=== PATIENT | male | born 1980 | race Two or more races ===

== ENCOUNTER 2020-02-06 12:11 | Emergency (ER) | payer MEDICAID, OTHER ==
[~2020-02-06] VITALS: Ht 165.1 cm; Wt 68.0 kg
[2020-02-06 13:37] VITALS: BP 134/100
== END 2020-02-06 14:44 | disposition home or self-care (01) ==
LOC: ER 12:11
DX: S53.402A Unspecified sprain of left elbow, initial encounter (principal); W19.XXXA Unspecified fall, initial encounter; Y93.67 Activity, basketball; Y92.89 Other specified places as the place of occurrence of the external cause; Y99.8 Other external cause status
CPT/HCPCS: 73080; 73090; 73110

== ENCOUNTER 2022-06-18 12:29 | Emergency (ER) | payer MEDICAID ==
[~2022-06-18] VITALS: Ht 165.1 cm; Wt 78.0 kg
[~2022-06-18 12:29] MED LIST: IBUP800T27 PO; TRIA0.02 TOP
[2022-06-18 15:08] VITALS: BP 128/89
[2022-06-18] MEDS ORDERED: METH750T22 PO (15:12)
[2022-06-18] MEDS ORDERED: KETOROLAC TROMETH 60MG/2ML VIAL IM ONE (15:15)
== END 2022-06-18 15:26 | disposition home or self-care (01) ==
LOC: ER 12:29
DX: M72.2 Plantar fascial fibromatosis (principal)
CPT/HCPCS: 96372; 99283; J1885

== ENCOUNTER 2023-04-12 13:10 | Emergency (ER) | payer MEDICAID ==
[~2023-04-12] VITALS: Ht 165.1 cm; Wt 69.7 kg
[~2023-04-12 13:10] MED LIST changes: +IBUP-1456 PO; -IBUP800T27 PO; +METH-1182 PO
[2023-04-12 18:31] VITALS: BP 115/84; PULSE 125; RESP 18; TEMP 97.7; O2SAT 96
[2023-04-12] MEDS ORDERED: KETOROLAC TROMETH 30 MG/ML 1ML VIAL IM ONE (19:00)
[2023-04-12] MEDS ORDERED: CARB200T4 PO (20:10)
== END 2023-04-12 21:26 | disposition home or self-care (01) ==
LOC: ER 13:10
DX: G50.0 Trigeminal neuralgia (principal); F17.210 Nicotine dependence, cigarettes, uncomplicated; Z79.899 Other long term (current) drug therapy
CPT/HCPCS: 96372; 99283; J1885